=== PATIENT | female | born 1975 | race Caucasian/White ===

== ENCOUNTER 2022-02-16 16:10 | Emergency (ER) | payer BC ==
[~2022-02-16] VITALS: Ht 157.5 cm; Wt 109.0 kg
[2022-02-16 17:09] VITALS: BP 124/81
[2022-02-16] MEDS ORDERED: normal saline 1000ml 1,000 ML IV ONE ×2 (19:15)
[2022-02-16] MEDS ORDERED: ondansetron 4mg rapidly disintigrating tab PO ONE (19:15)
[2022-02-16] MEDS ORDERED: acetaminophen 325mg tablet PO ONE (19:50)
[2022-02-16] MEDS ORDERED: ONDA4TAB12 PO (20:07)
== END 2022-02-16 20:53 | disposition home or self-care (01) ==
LOC: ER 16:11
DX: B34.9 Viral infection, unspecified (principal); R19.7 Diarrhea, unspecified; R50.9 Fever, unspecified; R53.83 Other fatigue; R05.9 Cough, unspecified; Z79.899 Other long term (current) drug therapy
CPT/HCPCS: 87502; 87503; 96360; 99283; J7030